=== PATIENT | female | born 1935 | race Caucasian/White ===

== ENCOUNTER 2024-06-23 19:43 | Emergency (ER) | payer MEDICARE, OTHER, SELFPAY ==
[2024-06-23 19:44] VITALS: BP 170/112; PULSE 68; RESP 16; TEMP 37.1; O2SAT 93; BMI 25.3
--- NOTE | 2024-06-23 20:25 | RAD_ITS ---
INDICATION: Hoarse voice EXAMINATION/TECHNIQUE: X-RAY - XR Neck Soft Tissue COMPARISON: FINDINGS: SOFT TISSUES: Unremarkable. No radiopaque foreign body. EPIGLOTTIS: No pathologic thickening or enlargement. PROXIMAL AIRWAY: Grossly patent. RAD/Neck for Soft Tissue IMPRESSION: Negative. Electronically Signed: Christina Fine MD at 21:46 EDT Reading Location ID and State: [id number] / Tel , Service support ,
[2024-06-23 20:31] LABS: Absolute Neutrophil Count 8.9 X10^3/uL (2.0-7.7); Basophil# 0.05 X10^3/uL; Basophil% 0.4 % (0-1); Eosinophil# 0.09 X10^3/uL; Eosinophils% 0.8 % (0-5); Hematocrit 41.6 % (37-47); Hemoglobin 13.4 g/dL (12.0-15.0); Lymphocyte % 12.1 % (19-41); Mean Corp Hgb Conc 32.2 g/dL (32-36); Mean Corpuscular Hgb 30.2 pg (27.0-32.0); Mean Corpuscular Volume 93.9 fL (81-99); Mean Platelet Vol. 11.5 fl (6.2-12.0); Monocyte# 1.11 X10^3/uL; Monocyte% 9.6 % (0-10); NRBC Flagged by Analyzer 0 % (0-5); Neutrophil % 76.8 % (47-70); Platelet Count 134 K/mm3 (150-450); RBC Distribution Width CV 16.4 % (11.6-14.6); RBC Distribution Width SD 56.4 fl (35.1-43.9); Red Blood Count 4.43 M/mm3 (4.2-5.4); White Blood Count 11.6 K/mm3 (4.4-11.0)
--- NOTE | 2024-06-23 20:45 | EX.ED.DYSGE1 ---
HPI History of Present Illness Chief Complaint: Cold Sx Detail of Chief Complaint: Upper respiratory symptoms with sore throat cough that started within the p Informant: patient Onset/Context/Timing Onset: Yesterday Context: Sudden Onset Timing: Continuous Quality: Cough, sore throat, hoarse voice Location: Upper respiratory Current Severity: Mild Maximum Severity: Moderate Worsened by: Swallowing Relieved by: Nothing Associated Symptoms Associated Symptoms: Denies fever or chills. Slight cough. No sputum production. No chest dis Narrative Narrative: Patient is an 88-year-old woman. She presents because of cough that is nonproductive, sore throat, congestion that started within the past 24 to 36 hours. She has had no subjective or objective fever. She denies headache, visual, ocular auditory symptoms. She denies drooling. Prior similar symptoms: No Recent Illness/Hospitalization: No PFSH PFSH Home Medications ?Medication ?Instructions ?Recorded ?Last Taken ?Type Calcium 600 + Vit D3 Tablet 2 tab PO DAILY 05/01/14 Unknown History Fish Oil/[place] 3 2 cap PO DAILY 05/01/14 Unknown History ascorbate calcium (vitamin C) 500 2 tab PO DAILY 05/01/14 Unknown History mg tablet azithromycin 250 mg tablet 1 tab PO DAILY 05/01/14 Unknown History cholecalciferol (vitamin D3) 25 2 cap PO DAILY 05/01/14 Unknown History mcg (1,000 unit) capsule (Vitamin D3) Allergy/AdvReac Type Severity Reaction Status Date / Time Penicillins (PCN) Allergy Unknown Verified 06/23/24 19:46 Social History Smoking Status: Never smoker ROS ROS ED Constitutional Constitutional ED: Denies chills, fever(s), subjective or sweats Eyes Eyes: Denies blurry vision or change in vision ENT ENT ED: Reports rhinorrhea and sore throat; Denies ear pain Cardiovascular Cardiovascular: Denies chest pain, orthopnea, palpitations, paroxysmal nocturnal dyspnea or racing heartbeat Respiratory/Chest Respiratory/Chest: Reports cough; Denies dyspnea, dyspnea on exertion, orthopnea, paroxysmal nocturnal dyspnea or sputum Gastrointestinal Gastrointestinal: Denies abdominal pain, diarrhea or vomiting Genitourinary Genitourinary ED: Denies dysuria, hematuria or urinary frequency Musculoskeletal Musculoskeletal: Denies arthralgias or myalgias Integumentary Denies rash Neurologic Neurologic: Denies headache(s) Hematologic/Lymphatic Hematologic/Lymphatic: Reports systems reviewed and no addt'l complaints, except as documented EXAM Physical Exam Const Vital Signs: 06/23/24 19:44 06/23/24 20:19 Temperature 98.8 F Temperature Source Oral Pulse Rate 68 Respiratory Rate 16 Respiratory Effort Normal Respiratory Pattern Normal Blood Pressure 170/112 H Blood Pressure Mean 131 Pulse Ox 93 Oxygen Delivery Method Room Air Positive well nourished and well developed General Appearance ED: well developed and NAD; Negative for cyanotic, diaphoretic or pallor HEENT Reports moist mucous membranes HEENT Narrative: Posterior pharynx out erythema exit. Uvula midline. There is no angioedema. There is no exudate. Patient does have dysphonia. Nares patent. Slight drainage noted. Ears normal. Eyes PERRL and EOMs intact bilaterally General Eye ED: Negative for pale conjunctiva or scleral icterus Neck no lymphadenopathy and supple Neck Narrative: Trachea is midline. There is no inspiratory stridor. She complains of pain over the larynx. There is no discomfort with movement of the larynx. Resp normal respiratory effort and clear to auscultation bilaterally Cardio regular rate, regular rhythm, S1 normal heart sound, S2 normal heart sound and no murmurs GI normal to inspection, nondistended, normoactive bowel sounds, non-distended and no masses Extremity normal to inspection General Extremety ED: Negative for edema or tenderness General Extremity: Negative for edema Neuro oriented x3 and CN's II-XII intact bilaterally Sensorium / Orientation: alert Psych mental status grossly normal Skin no rashes or lesions noted, no wounds and skin turgor normal General Skin Exam: Negative for jaundice or pallor MDM MDM MDM Narrative Medical decision making narrative: Differential diagnosis would be viral upper respiratory infection, epiglottitis, retropharyngeal abscess, parapharyngeal abscess. Suspect this is a viral upper respiratory infection. Because of her complaint of pain over the larynx and she does have a significant hoarse voice we will obtain soft tissue x-ray of the neck. Lab Data Attestation: I reviewed the patient's lab results. Lab results narrative: White count is slightly elevated and there is no shift. Basic metabolic panel reveals a glucose of 179 with normal CO2 anion gap. Labs: Laboratory Results - last 24 hr 06/23/24 20:17 WBC 11.6 H RBC 4.43 Hgb 13.4 Hct 41.6 MCV 93.9 MCH 30.2 MCHC 32.2 RDW Std Deviation 56.4 H RDW Coeff of Anh 16.4 H Plt Count 134 L MPV 11.5 Immature Gran % (Auto) 0.300 Neut % (Auto) 76.8 H Lymph % (Auto) 12.1 L [place] % (Auto) 9.6 Eos % (Auto) 0.8 Baso % (Auto) 0.4 Absolute Neuts (auto) 8.9 H Absolute Lymphs (auto) 1.40 Nucleated RBC % 0 Sodium 141 Potassium 4.1 Chloride 113 H Carbon Dioxide 24.0 Anion Gap 4 L BUN 18 Creatinine 0.80 Estim Creat Clear Calc 43.19 Est GFR (MDRD) Af Amer 86 Est GFR (MDRD) Non-Af 71 BUN/Creatinine Ratio 22.4 H Glucose 179 H Calcium 8.9 Radiography Chest X-Ray - ED: 2 View and Read by ED Physician (To read by me at 2051 as negative. There is no evidence of epiglottitis. There is no prevertebral soft tissue swelling noted.) Discharge Plan Triage Chief Complaint: Cold Sx ED Provider: Darrin Thomas Dx/Rx/DC Orders Clinical Impression: Acute laryngitis, Elevated blood pressure reading Instructions: ED Laryngitis Prescriptions: No Action azithromycin 250 MG tablet 1 tab PO DAILY Patient Comments: x 9 days, starting 04/29/14 ascorbate calcium (vitamin C) 500 MG tablet 2 tab PO DAILY cholecalciferol (vitamin D3) [Vitamin D3] 1,000 UNIT capsule 2 cap PO DAILY Calcium 600 + Vit D3 Tablet 2 tab PO DAILY Fish Oil/[place] 3 Mg 2 cap PO DAILY Patient Comments: 1,000/300 mg Primary Care Provider: Care Physician,No Primary Referrals: Elaina Serrano MD [Med Staff - [employer]] - 1-2 Weeks NOT,DEFINED [Non-Staff] - Activity Restrictions/Additional Instructions: Since you are new to the area I do not have a physician you were assigned to Dr. Elaina Serrano. Print Language: Armenian Disposition Disposition: Home, Self Care
[2024-06-23 20:49] LABS: Anion Gap 4 (5-15); BUN 18 mg/dL (7-18); BUN/Creat Ratio 22.4 RATIO (10-20); Calcium,Total 8.9 mg/dL (8.5-10.1); Chloride 113 mmol/L (98-107); EST Glomerular Filtration Rate 71 mL/min (>60); Est Glom Filt Rate - Afr Amer 86 mL/min (>60); Estimated Creatinine Clearance 43.19 ml/min; Glucose 179 mg/dL (74-106); Potassium 4.1 mmol/L (3.5-5.1); Sodium Level 141 mmol/L (136-145)
[2024-06-23 21:09] VITALS: BP 180/85; PULSE 60; RESP 18; TEMP 37; O2SAT 95
== END 2024-06-23 21:12 | disposition home or self-care (01) ==
PROVIDERS: Emergency Provider Emergency Medicine; Visit Provider Emergency Medicine
DX: J04.0 Acute laryngitis (principal); R03.0 Elevated blood-pressure reading, without diagnosis of hypertension
CPT/HCPCS: 70360; 80048; 85025; 99283